=== PATIENT | female | born 1985 | race Asian ===

== ENCOUNTER → 2017-06-18 | Outpatient (CLI) | END | disposition home or self-care (01) ==

== ENCOUNTER → 2017-06-26 | Outpatient (CLI) | END | disposition home or self-care (01) ==

== ENCOUNTER → 2018-01-01 | Outpatient (CLI) | END | disposition home or self-care (01) ==

== ENCOUNTER → 2018-01-26 | Outpatient (CLI) | END | disposition home or self-care (01) ==

== ENCOUNTER → 2018-04-23 | Outpatient (CLI) | payer BC | END | disposition home or self-care (01) | LOC: LAB 08:26 | PROVIDERS: ATTEND Obstetrics & Gynecology | DX: O24.410 Gestational diabetes mellitus in pregnancy, diet controlled (principal); Z3A.00 Weeks of gestation of pregnancy not specified | CPT/HCPCS: 82950; 85025 ==

== ENCOUNTER 2018-07-06 09:50 | Outpatient (CLI) | payer BC ==
[~2018-07-06] VITALS: Ht 144.8 cm; Wt 67.7 kg
[2018-07-06 10:01] VITALS: Ht 144.8 cm; Wt 67.7 kg
[2018-07-06 10:02] VITALS: BP 113/76; RESP 20
--- NOTE | 2018-07-06 12:30 | PN ---
Triage Information Date/Time Reason for visit: Uterine contractions Weeks of Gestation 38+ /Para 2/1 Diabetes: none Objective Vital Signs Date Temp Pulse Resp B/P (MAP) Pulse Ox O2 O2 Flow FiO2 Time Delivery Rate 07/06/18 97.9 20 113/76 Room Air 10:02 (88) Heart Rate: 140's Contractions: None Results/Medications Results 24 hrs Laboratory Tests Test 07/06/18 10:55 Membranes Rupture NEGATIVE Disposition: Discharge Assessment/Plan CX closed ROM plus test Neg ALEX 16 [facility] 01/27 --->precautions discussed --->Questions answered --->F/u with provider --->Return to hospital in 2 days for NST MALOU ARMSTRONG M.D. Jul 06, 2018 12:30
--- NOTE | 2018-07-06 12:36 | TRIAGE ---
OB Triage Datetime Report Generated by CPN: 07/06/2018 12:35 Datetime: 07/06/2018 12:15 Comments: Dr. Nieves was informed of Dr Zazueta's request to send her pt home. Datetime: 07/06/2018 12:14 Stage of : Labor Datetime: 07/06/2018 12:12 Comments: Dr. Zazueta was informed of pt's nitrozin results of negative, ROM plus negative, BPP 8/8 with ALEX 16.3. NST reactive. New order to send pt home and have Dr. Nieves come to d/c pt. Datetime: 07/06/2018 12:00 Labor Evaluation Frequency: 2-9 Monitor Mode: External Duration (sec)2399: 40-70 Quality: Mild Pattern: Normal: <= 5 Contractions in 10 Minutes Resting Tone [place]: Relaxed Heart Rate FHR Baseline Rate: 145 Monitor Mode: External US FHR Baseline Changes: No Baseline Change Variability: Moderate 6-25 bpm Accelerations: 15X15 Decelerations: None Category: Category I Pain Assessment Pain Scale: 0 Pain Presence: None/Denies Pain Type: N/A Pain Goal: 3 Datetime: 07/06/2018 11:04 Comments: Pt back to monitor Datetime: 07/06/2018 10:56 Comments: U/S at bedside Datetime: 07/06/2018 10:51 Stage of : OB Triage Labor Evaluation Frequency: 2-7 Monitor Mode: External Duration (sec)2399: 40-90 Quality: Mild Pattern: Normal: <= 5 Contractions in 10 Minutes Resting Tone [place]: Relaxed Heart Rate FHR Baseline Rate: 140 Monitor Mode: External US FHR Baseline Changes: No Baseline Change Variability: Moderate 6-25 bpm Accelerations: 15X15 Category: Category I Pain Assessment Pain Scale: 0 Pain Presence: None/Denies Pain Type: N/A Pain Goal: 3 Datetime: 07/06/2018 10:46 Comments: Nitrozin neg, no pooling noted, VE done and ROM plus send to lab Vaginal Exam Dilatation (cms): 3.0 Effacement (%): 50 Station: -3 Exam By: LH Datetime: 07/06/2018 10:35 Comments: Carlita was called on the office regarding pt's arrival to unit with c/o leaking. New order for nitorzin if neg send ROM plus and BPP. Datetime: 07/06/2018 10:16 Comments: Carlita called on cell phone. Message left to call this nurse back regarding arrival o f this pt. Datetime: 07/06/2018 10:07 Stage of : OB Triage Maternal Assessment Level of Consciousness: Fully Conscious DTR's/Clonus: DTRs 2+; No Clonus Headache: Denies Blurred Vision: No Respiratory Effort: Unlabored; Regular Rhythm; Equal Expansion Breath Sounds, Left: Clear and Equal Breath Sounds, Right: Clear and Equal Nausea/Vomiting: Denies RUQ Epigastric Pain: Denies Lower Extremities Edema: None Upper Extremities Edema: None Facial Edema: None Temperature Route: Axillary Fall Risk Assessment History of Falling: (0) No Secondary Diagnosis: (0) No Ambulatory Aid: (0) Bedrest/Nurse Assist IV Therapy: (0) No Gait: (0) Normal/Bedrest/Immobile Mental Status: (0) Oriented to Own Ability Fall Score: 0 Fall Risk Score Definition: No Risk: No action required Datetime: 07/06/2018 10:01 EGA: 37.3 Datetime: 07/06/2018 09:59 Time of Arrival: 06/29/2018 09:50 Arrived By: Ambulatory Arrived From: Home Chief Complaint: leaking Movement: Present Contractions: Denies/Absent Rupture of Membranes: Unsure Vaginal Bleeding: None Vaginal Discharge: Denies Recent Sexual Intercouse: Denies Abdominal Trauma: Not Applicable Patient Complaints: None Initial Plan: NST, ROM plus, BPP Datetime: 07/06/2018 09:58 Stage of : OB Triage Temperature Route: Oral Datetime: 07/06/2018 09:50 Stage of : OB Triage
== END 2018-07-06 12:33 | disposition home or self-care (01) ==
LOC: OBT 09:50 → L-D 09:51 → OBT 12:33
PROVIDERS: ATTEND Obstetrics & Gynecology
DX: O62.9 Abnormality of forces of labor, unspecified (principal); Z3A.38 38 weeks gestation of pregnancy
CPT/HCPCS: 76818; 84112; G0463

== ENCOUNTER 2018-07-12 09:02 | Inpatient (IN) | payer BC ==
[~2018-07-12] VITALS: Ht 147.3 cm; Wt 68.0 kg
[2018-07-12] MEDS ORDERED: LACTATED RINGER'S 1,000 ML IV SCH (09:17)
[2018-07-12 09:20] VITALS: Ht 147.3 cm; Wt 68.0 kg
[2018-07-12 09:23] VITALS: BP 125/85; PULSE 85; RESP 20
[2018-07-12] MEDS ORDERED: CARBOPROST 250 MCG INJ IM PRN ×2 (09:30→11:30)
[2018-07-12] MEDS ORDERED: BUTORPHANOL 2 MG INJ IV PRN (09:30)
[2018-07-12] MEDS ORDERED: OXYCODONE/ASPIRIN (4.88/325) TAB PO PRN (09:30)
[2018-07-12] MEDS ORDERED: OXYTOCIN 30 UNITS/LR 500 ML IV PRN ×2 (09:30→11:30)
[2018-07-12] MEDS ORDERED: MISOPROSTOL 200 MCG TAB PR PRN ×2 (09:30→11:30)
[2018-07-12] MEDS ORDERED: LIDOCAINE 1% (MPF) 30 ML INJ INJ PRN (09:30)
[2018-07-12] MEDS ORDERED: IBUPROFEN 600 MG TAB PO PRN (09:30)
[2018-07-12] MEDS ORDERED: OXYTOCIN 30 UNITS/LR 500 ML IV SCH ×3 (09:30→11:06)
[2018-07-12] MEDS ORDERED: METHYLERGONOVINE 0.2 MG INJ IM PRN ×2 (09:30→11:30)
[2018-07-12] MEDS ORDERED: LACTATED RINGER'S 1,000 ML IV* SCH (11:06)
--- NOTE | 2018-07-12 11:10 | LDN ---
Date/Time of Note Date/Time of Note DATE: 07/12/18 TIME: 11:08 Delivery Summary of a viable baby girl weighing 3665 grams or 8# 1 oz, 19.25" long, and with Apgars of 9/9. Weeks of Gestation 39w 2d Placenta Delivered: Spontaneously Meconium: none Episiotomy: No Perineal laceration: 2 Laceration repair: 2nd degree perineal laceration repaired with 2-0 chromic. Anesthesia type: Local Estimated blood loss: 350 Sponge & Needle done & correct: Yes All needle counts correct: Yes Any foreign bodies felt in the: No (vagina) Delivery Information Sex Infant Sex: female Apgars 1 Minute: 9 5 Minute: 9 Suctioning Nose & mouth suctioned at juancarlos: Yes Delee suction performed: No Umbilical Cord Umbilical cord with: 3 Vessels Cord presentations: no nuchal cord Cord Blood was obtained: Yes Mother & Baby Disposition Disposition Mom & Baby to Maternity; Good: Yes Baby to NICU: No JL CHUA MD Jul 12, 2018 11:10
--- NOTE | 2018-07-12 11:15 | HP ---
Date/Time of Note Date/Time of Note DATE: 07/12/18 TIME: 11:10 OB - History Hx of Present Free Text/Dictation 33 y.o. with an IUP at 39w 2d came in labor and was 9+ cm dilated on admit with intact membranes. 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 PSHx: LSC left ovarian cystectomy for an endometrioma. NKDA. Past Family/Social History * Past Medical, Surgical, Family and Obstetric Histories reviewed from chart. Blood Type: AB+ Rubella: immune RPR/VDRL: Negative GBS Status: Negative HBsAG: Positive (Hep B core antibody positive and Hep B viral DNA negative.) OB Admission Exam Vital Signs Vital Signs Vital Signs Date Temp Pulse Resp B/P (MAP) Pulse Ox O2 O2 Flow FiO2 Time Delivery Rate 07/12/18 97.5 85 20 125/85 Room Air 09:23 (98) Physical Exam HEENT: WNL Heart: Rhythm Normal Lungs: Clear Abdomen: WNL Extremities: Normal Reflexes: Normal Cervical Dilatation: 10cm Effacement: 100% Station: 0 Membranes: Intact Amniotic Fluid: Clear Heart Rate: 140's Accelerations: Accelerations Present Decelerations: No Decelerations Varibility: Marked Contractions on Admission: < 5 Minutes Apart Intensity: Firm Last 72 hours Lab Results CBC & BMP 07/12/18 09:20 OB Assessment/Plan Reason for admission: active labor Other Assessment: Chronic hepatitis B without viral DNA. Plan: Expectant Management JL CHUA MD Jul 12, 2018 11:15
[2018-07-12] MEDS ORDERED: LANOLIN HPA 1 PKT TOP PRN (11:30)
[2018-07-12] MEDS ORDERED: HYDROCODONE/APAP (5/325) TAB PO PRN (11:30)
[2018-07-12 11:45] VITALS: BP 123/61; PULSE 74; RESP 18
[2018-07-12] MEDS: IBUPROFEN 600 MG TAB PO SCH ×3 (13:40→23:44)
[2018-07-12 15:50] VITALS: BP 119/54; PULSE 83; RESP 18
[2018-07-12 20:40] VITALS: BP 109/63; PULSE 87; RESP 18
[2018-07-13 03:26] VITALS: BP 105/56; PULSE 88; RESP 20
[2018-07-13] MEDS: IBUPROFEN 600 MG TAB PO SCH ×2 (05:35→11:44)
[2018-07-13 08:15] VITALS: BP 96/55; PULSE 68; RESP 18
[2018-07-13 09:15] VITALS: BP 96/55; PULSE 68; RESP 18
--- NOTE | 2018-07-13 13:52 | PD.PPDC ---
RANGE MECHANIC Discharge Instruction Condition [id number] Patient Condition: Erfms6s Good Diet [id number] Diet: [id number] Resume Regular Diet Activity/Restrictions [id number] Activity: [id number] Normal Activity May Shower [id number] Restrictions: [id number] No Sexual Activity Nothing in the Vagina No [place] No Tampons, douche Follow-up Follow-up with Physician: 6, Week/Weeks Return to clinic for [id number] ALLIANCES CONSULTANT Instructions: [id number] Fever greater than 101 Chills Worsening abdominal pain Excessive Vaginal Bleeding [id number] OB Instructions: [id number] Breast Tenderness Depression JL CHUA MD Jul 13, 2018 13:52
--- NOTE | 2018-07-13 13:54 | DS ---
Date/Time of Note Date/Time of Note DATE: 07/13/18 TIME: 13:53 Obstetrical Discharge Record Final Diagnosis Final Diagnosis: Term delivered Vaginal Delivery Obstetrical Delivery: Spontaneous, Laceration, Repaired Complications Augmentation: No Induction: No Condition on Discharge Physical Assessment Last Vitals: T=98.4 BP 96/55 Voiding: Yes Bowel Movement: Yes Breast: Soft, non-tender Fundus: Firm Calf Tenderness: No Patient Condition: Good JL CHUA MD Jul 13, 2018 13:54
[2018-07-14] MEDS ORDERED: DIPHTH/TET/ACEL PERTUSS (ADULT) 0.5 ML VIAL IM* ONE (09:00)
--- NOTE | 2018-07-14 18:40 | DELSUM ---
Delivery Summary A-C Datetime Report Generated by CPN: 07/14/2018 18:39 DELIVERY PERSONNEL Veneer Jointer Offbearer: Adángethardik, Debra MATERNAL INFORMATION Delivery Anesthesia: Local Medications in Delivery: pitocin Delivery QBL (ml): 350 Placenta Cultured: No Maternal Complications: Precip Labor <3hrs; Other Other Maternal Complications: hepatitis b reactive LABOR SUMMARY EDC: 07/17/2018 00:00 No. Babies in Womb: 1 Attempted: No Labor Anesthesia: None LABOR INFORMATION Reason for Induction: Not Applicable Onset of Labor: 07/12/2018 07:18 Complete Dilatation: 07/12/2018 09:30 Oxytocin: N/A Group B Beta Strep: Negative Antibiotics # of Doses: 0 Steroids Given: None Reason Steroids Not Administered: Not Applicable MEMBRANES Membranes Rupture Method: Spontaneous Rupture of Membranes: 07/12/2018 09:23 Length of Rupture (hr): 0.23 Amniotic Fluid Color: Clear Amniotic Fluid Amount: Moderate Amniotic Fluid Odor: Normal STAGES OF LABOR Stage 1 hr: 2 Stage 1 min: 12 Stage 2 hr: 0 Stage 2 min: 7 Stage 3 hr: 0 Stage 3 min: 3 Total Time in Labor hr: 2 Total Time in Labor min: 22 VAGINAL DELIVERY Episiotomy: None Laceration Extension: Second Degree Laceration Type: Perineal Initial Vag Sponge Count: 10 Final Vag Sponge Count: 10 Initial Vag Sharps Count: 2 Final Vag Sharps Count: 2 Sponge Count Correct: Yes Sharps Count Correct: Yes BABY A INFORMATION Delivery Date/Time: 07/12/2018 09:37 Method of Delivery: Vaginal Born in Route : No : N/A Forceps: N/A Vacuum Extraction: N/A Shoulder Dystocia : N/A SHOULDER DYSTOCIA BABY A Delivery Date/Time: 07/12/2018 09:37 PRESENTATION/POSITION BABY A Presentation: Cephalic Cephalic Presentation: Vertex Vertex Position: Left Occipital Anterior Breech Presentation: N/A PLACENTA INFORMATION BABY A Placenta Delivery Time : 07/12/2018 09:40 Placenta Method of Delivery: Spontaneous Placenta Status: Delivered SCORES BABY A Heart Rate 1 min: >100 bpm Resp Effort 1 min: Good Cry Reflex Irritability 1 min: Cough/Sneeze/Pulls Away Muscle Tone 1 min: Active Motion Color 1 min: Body [place], Extremit Blue Resuscitation Effort 1 min: Tactile Stimulation; Oxygen SCORE 1 MIN: 9 Heart Rate 5 min: >100 bpm Resp Effort 5 min: Good Cry Reflex Irritability 5 min: Cough/Sneeze/Pulls Away Muscle Tone 5 min: Active Motion Color 5 min: Body [place], Extremit Blue Resuscitation Effort 5 min: Tactile Stimulation; Oxygen SCORE 5 MIN: 9 INFANT INFORMATION BABY A Gestational Age at Delivery: 39.2 Gestational Status: Full Term- 39- 40.6 Weeks Infant Outcome : Liveborn Infant Condition : Stable Sex: Female IDENTIFICATION/MEDS BABY A ID Band Number: [id number] ID Band Location: Right Leg; Left Arm Sensor Applied: Yes Sensor Number: [id number] Sensor Location : Cord Clamp Vitamin K Given : Not Given Erythromycin Given: Not Given WEIGHT/LENGTH BABY A Birthweight (gm): 3665 Infant Weight (lb): 8 Weight (oz): 1 Length (in): 19.25 Length (cm): 48.90 CORD INFORMATION BABY A No. Cord Vessels: 3 Nuchal Cord : N/A Cord Blood Taken: Yes Suction: Mouth; Nose ASSESSMENT BABY A Infant Complications: Other Complications- Other: precip, Hp Body + Hp Bsab -, Hep B viral -, Heb B C A B + Physical Findings at Delivery: Caput Succedaneum; Molding of the Head; Other Respirations: Appears Normal Chief Deputy Court Clerk/ALS Called : Yes Infant Care By: rosalva hudson Transferred To: Remains with Mother
== END 2018-07-13 18:39 | disposition home or self-care (01) | DRG 806 ==
LOC: L-D 09:02 → OBT 09:02 → L-D 09:03 → PP1 11:46
PROVIDERS: ADMIT Obstetrics & Gynecology; ATTEND Obstetrics & Gynecology
PROC: 10E0XZZ Delivery of Products of Conception, External Approach (ICD-10-PCS; principal; 2018-07-12)
PROC: 0KQM0ZZ Repair Perineum Muscle, Open Approach (ICD-10-PCS; 2018-07-12)
DX: O70.1 Second degree perineal laceration during delivery (principal); B18.1 Chronic viral hepatitis B without delta-agent; Z37.0 Single live birth; Z3A.39 39 weeks gestation of pregnancy
CPT/HCPCS: 85025; 85610; 85730; 86592; 86704; 86850; 86870; 86900; 86901; 87340; J2590; J7120